=== PATIENT | female | born 1930 | race Two or more races ===

== ENCOUNTER 2017-06-07 15:06 | Emergency (ER) | payer SELFPAY ==
--- NOTE | 2017-06-07 15:24 | ER Document Report ---
ED Extremity Problem, Lower - General Chief Complaint: Leg Swelling Stated Complaint: LEG PAIN Time Seen by Provider: 06/07/17 15:18 Notes: The patient is an 87-year-old female, past medical history Alzheimer's, presents with her daughter after she has had 3 days of increased bilateral leg swelling and abdominal swelling. Patient was started on 20 mg of Lasix by her primary care physician in [place] last month. She recently flew up from [place] and was wearing compression stockings. She has not worn the compression stockings since then. Patient is Swazi-speaking and the daughter is helping with translation. Offered translation services, but the daughter declines. Patient denies chest pain, shortness of breath, cough, fevers, urinary symptoms , abdominal pain, leg pain, rash, back pain, headache or PAZ. - Related Data Allergies/Adverse Reactions: Penicillins Allergy (Verified 06/07/17 15:33) Past Medical History - General Information source: Patient - Social History Smoking Status: Unknown if Ever Smoked Family History: Reviewed & Not Pertinent Review of Systems - Review of Systems Notes: REVIEW OF SYSTEMS: CONSTITUTIONAL: -fevers, -chills EENT: -eye pain, -difficulty swallowing, -nasal congestion CARDIOVASCULAR: -chest pain, -syncope. RESPIRATORY: -cough, -SOB GASTROINTESTINAL: -abdominal pain, -nausea, -vomiting, -diarrhea GENITOURINARY: -dysuria, -hematuria MUSCULOSKELETAL: +B/L leg swelling, -back pain, -neck pain SKIN: -rash or skin lesions. HEMATOLOGIC: -easy bruising or bleeding. LYMPHATIC: -swollen, enlarged glands. NEUROLOGICAL: -altered mental status or loss of consciousness, -headache, - neurologic symptoms PSYCHIATRIC: -anxiety, -depression. ALL OTHER SYSTEMS REVIEWED AND NEGATIVE. Physical Exam - Vital signs Vitals: Temp Resp Pulse Ox 98.0 F 22 H 100 06/07/17 15:15 06/07/17 15:15 06/07/17 15:15 - Notes Notes: PHYSICAL EXAMINATION: GENERAL: Well-appearing, well-nourished and in no acute distress. HEAD: Atraumatic, normocephalic. EYES: Pupils equal round and reactive to light, extraocular movements intact, sclera anicteric, conjunctiva are normal. ENT: nares patent, oropharynx clear without exudates. Moist mucous membranes. NECK: Normal range of motion, supple without lymphadenopathy LUNGS: Breath sounds clear to auscultation bilaterally and equal. No wheezes rales or rhonchi. HEART: Regular rate and rhythm without murmurs ABDOMEN: Soft, nontender, normoactive bowel sounds. No guarding, no rebound. No masses appreciated. EXTREMITIES: 1+ B/L ankle edema, normal range of motion. No cyanosis. NEUROLOGICAL: Cranial nerves grossly intact. Normal speech, normal gait. Normal sensory and motor exams. PSYCH: Normal mood, normal affect. SKIN: Warm, Dry, normal turgor, no rashes or lesions noted. Course - Re-evaluation Re-evalutation: Patient appears well and is in no respiratory distress. Her chest x-ray shows cardiomegaly without evidence of pulmonary edema. She has bilateral peripheral edema and bedside ultrasound does not show any evidence of DVT. Instructed her to increase her Lasix from 20 mg to 40 mg, wear compression stockings, keep her legs elevated and follow-up with her primary care physician in [place] when she returns later this month. The daughter, who is the primary caregiver, understands. - Vital Signs Vital signs: Temp Pulse Resp BP Pulse Ox 98.0 F 82 20 132/74 H 98 06/07/17 18:24 06/07/17 18:24 06/07/17 18:24 06/07/17 18:24 06/07/17 18:24 - Laboratory Result Diagrams: 06/07/17 15:30 06/07/17 15:30 Laboratory results interpreted by me: 06/07/17 06/07/17 06/07/17 15:30 15:30 15:30 Hgb 10.7 L Hct 34.8 L MCV 70 L MCH 21.6 L MCHC 30.8 L RDW 18.6 H BUN 21 H Glucose 131 H AST 56 H Alkaline Phosphatase 135 H Creatine Kinase 293 H NT-Pro-B Natriuret Pep 2100 H - Diagnostic Test Radiology reviewed: Image reviewed, Reports reviewed Radiology results interpreted by me: CXR: Cardiomegaly without pulmonary edema B/L LE DVT US: No DVT or SVT. Discharge - Discharge Clinical Impression: Peripheral edema Condition: Stable Disposition: HOME, SELF-CARE Additional Instructions: Increase her Lasix to 40 mg daily and use compression stockings and keep the legs elevated. She must follow-up with angela primary care physician in [place]. Return to the ER if you have any worsening shortness of breath or any other symptoms. Edema, Peripheral You have swelling in your legs. This is called peripheral edema. It can be caused by "leaky capillaries," inflammation, disease of the leg veins, or excess salt and water in your body. Edema may be a sign of heart, kidney, or liver disease. A medical evaluation can determine if there is a serious underlying cause for your edema. Avoid prolonged standing. If you must sit for a long time, occasionally get up and walk around or elevate your legs. Support stockings can be helpful in limiting swelling. Often diuretic or water pills are used to remove excess salt and water from your body. Call the doctor or return if you develop increased swelling, pain, or redness, shortness of breath, chest pain, or any other significant change. How to prevent Hypokalemia If you continue Lasix, you may have an abnormally decreased level of serum potassium. Hypokalemia may cause weakness, fatigue, or heart rhythm abnormalities. Sometimes there are no symptoms at all. Usually, low serum potassium is due to taking diuretics (water pills). It can also be due to excessive vomiting or diarrhea. If no obvious cause is evident, further evaluation will be necessary. Treatment is usually oral potassium supplements. Take these exactly as prescribed. You may also want to select foods which are naturally high in potassium -- fruits (such as bananas, cantaloupe, grapes, oranges, prunes, tomatoes), fresh vegetables (potatoes, spinach, beans, peas), orange or tomato juice, tomato pasta sauce, milk, fish (halibut, tuna, salmon, jethro) A follow-up blood test is usually performed to assure that the potassium is returning to normal. Call the physician if you suffer severe weakness, muscle twitching or cramping, palpitations (pounding or irregular heartbeat), or any other new or alarming symptoms. Prescriptions: Furosemide [Lasix 40 mg Tablet] 40 mg PO QAM #30 tablet Referrals: KATLYN VARELA MD [ACTIVE STAFF] - Follow up as needed
--- NOTE | 2017-06-07 15:47 | RADIOLOGY REPORT (SQ) ---
EXAM DESCRIPTION: CHEST SINGLE VIEW COMPLETED DATE/TIME: 06/07/2017 3:39 pm REASON FOR STUDY: SOB COMPARISON: None. EXAM PARAMETERS: NUMBER OF VIEWS: One view. TECHNIQUE: Single frontal radiographic view of the chest acquired. RADIATION DOSE: NA LIMITATIONS: Patient body habitus. FINDINGS: LUNGS AND PLEURA: No opacities, masses or pneumothorax. No pleural effusion. MEDIASTINUM AND HILAR STRUCTURES: Prominent HEART AND VASCULAR STRUCTURES: Cardiomegaly. No overt CHF. BONES: No acute findings. HARDWARE: None in the chest. OTHER: No other significant finding. IMPRESSION: Cardiomegaly. No overt CHF. TECHNICAL DOCUMENTATION: JOB ID: [id number] [employer]- All Rights Reserved
[2017-06-07 16:02] LABS: ABSOLUTE BASOPHILS # (AUTO) 0.1 10^3/uL (0.0-0.2); ABSOLUTE LYMPHOCYTES (AUTO) 1.4 10^3/uL (0.5-4.7); ABSOLUTE MONOCYTES (AUTO) 0.8 10^3/uL (0.1-1.4); ABSOLUTE NEUT (AUTO) 4.3 10^3/uL (1.7-8.2); BASOPHILS % (AUTO) 1.1 % (0-2); EOSINOPHILS % (AUTO) 0.4 % (0-6); HEMATOCRIT 34.8 % (36.0-47.0); HEMOGLOBIN 10.7 g/dL (12.0-15.5); LYMPHOCYTES % (AUTO) 21.8 % (13-45); MEAN CORPUSCULAR HEMOGLOBIN 21.6 pg (27.0-33.4); MEAN CORPUSCULAR HGB CONC 30.8 g/dL (32.0-36.0); MEAN CORPUSCULAR VOLUME 70 fl (80-97); MONOCYTES % (AUTO) 11.6 % (3-13); PLATELET COUNT 273 10^3/uL (150-450); RED BLOOD COUNT 4.96 10^6/uL (3.72-5.28); RED CELL DISTRIBUTION WIDTH 18.6 % (11.5-14.0); SEGMENTED NEUTROPHILS % (AUTO) 65.1 % (42-78); TOTAL CELLS COUNTED % (AUTO) 100 %; WHITE BLOOD COUNT 6.6 10^3/uL (4.0-10.5)
[2017-06-07 16:09] LABS: ALANINE AMINOTRANSFERASE 27 U/L (9-52); ALBUMIN 3.9 g/dL (3.5-5.0); ALKALINE PHOSPHATASE 135 U/L (38-126); ANION GAP 9 (5-19); ASPARTATE AMINO TRANSFERASE 56 U/L (14-36); BILIRUBIN,DIRECT 0.4 mg/dL (0.0-0.4); BILIRUBIN,TOTAL 0.5 mg/dL (0.2-1.3); BLOOD UREA NITROGEN 21 mg/dL (7-20); CALCIUM 8.8 mg/dL (8.4-10.2); CARBON DIOXIDE 26 mmol/L (22-30); CHLORIDE 104 mmol/L (98-107); CREATINE KINASE 293 U/L (30-135); GLUCOSE 131 mg/dL (75-110); POTASSIUM 4.4 mmol/L (3.6-5.0); SODIUM 138.5 mmol/L (137-145); TOTAL PROTEIN 6.9 g/dL (6.3-8.2)
[2017-06-07] MEDS ORDERED: KETOROLAC TROMETHAMINE INJ/PF 30 MG/1 ML SDV IV ONE (16:21)
[2017-06-07] MEDS ORDERED: KETOROLAC TROMETHAMINE 60 MG/2 ML SDV IM ONE (16:31)
[2017-06-07] MEDS ORDERED: FUROSEMIDE 40 MG TABLET PO ONE (16:59)
[2017-06-07 18:25] VITALS: BP 132/74
--- NOTE | 2017-06-08 06:45 | EKG REPORT ---
SEVERITY:- ABNORMAL ECG - SINUS RHYTHM ATRIAL PREMATURE COMPLEX LEFT AXIS DEVIATION ANTERIOR INFARCT, AGE INDETERMINATE : Confirmed by: Oscar Mendez MD 08-Jun-2017 06:44:12
--- NOTE | 2017-06-08 07:25 | XCELERA REPORT ---
[address] [address] Lower Extremity Venous Evaluation Name: MAURISIO COOPER Age: 87 yrs Gender: Female : 1930 Patient Status: Emergency Patient Location: ER Study Date: 06/07/2017 04:13 PM Procedure: Color flow and duplex imaging bilaterally of the veins of the lower extremities as well as the Common Femoral veins. Reason For Study: B/L leg swelling, recent flight Ordering Physician: ELMER BUENROSTRO Performed By: Coreen Jackson Right Sided Venous Evaluation Normal vessel filling wall to wall, compression and augmentation as well as Colour flow down to the infrageniculate veins. Left Sided Venous Evaluation Normal vessel filling wall to wall, compression and augmentation as well as Colour flow down to the infrageniculate veins. Interpretation Summary No duplex evidence of DVT or obstruction in the bilateral lower extremities. Considerable subcutaneous edema noted. : ELMER BUENROSTRO > Mikel Reed
== END 2017-06-07 18:25 | disposition home or self-care (01) ==
LOC: ER 15:06
DX: R60.9 Edema, unspecified (principal); G30.9 Alzheimer's disease, unspecified; F02.80 Dementia in other diseases classified elsewhere, unspecified severity, without behavioral disturbance, psychotic disturbance, mood disturbance, and anxiety; Z88.0 Allergy status to penicillin
CPT/HCPCS: 93005; 99284; 96372; 36415; 82550; 85025; 80053; 83880; 93970 ×2; 71045; 93010; J1885

== ENCOUNTER 2017-07-02 16:55 | Emergency (ER) | payer MEDICARE, OTHER ==
--- NOTE | 2017-07-02 18:34 | EKG REPORT ---
SEVERITY:- ABNORMAL ECG - SINUS TACHYCARDIA MULTIFORM VENTRICULAR PREMATURE COMPLEXES LOW VOLTAGE THROUGHOUT = CONSIDER MYXEDEMA HEART OR SEVERE PERICARDIAL EFFUSION. OR SEVERE EMPHYSEMA. CONSIDER INFERIOR INFARCT CONSIDER ANTEROSEPTAL INFARCT BORDERLINE T ABNORMALITIES, LATERAL LEADS : Confirmed by: Oscar Mendez MD 02-Jul-2017 18:33:44
[2017-07-02 19:08] LABS: APPEARANCE,URINE CLEAR; BILIRUBIN,URINE NEGATIVE (NEGATIVE); COLOR,URINE AMBER; GLUCOSE, URINE NEGATIVE (NEGATIVE); KETONES,URINE NEGATIVE (NEGATIVE); LEUKOCYTE ESTERASE,URINE NEGATIVE (NEGATIVE); NITRITE,URINE NEGATIVE (NEGATIVE); PROTEIN,URINE 100 mg/dL (NEGATIVE); URINE SPECIFIC GRAVITY 1.028
[2017-07-02 19:14] LABS: ABSOLUTE MONOCYTES (AUTO) 0.9 10^3/uL (0.1-1.4); ABSOLUTE NEUT (AUTO) 4.6 10^3/uL (1.7-8.2); BASOPHILS % (AUTO) 0.2 % (0-2); EOSINOPHILS % (AUTO) 0.1 % (0-6); HEMATOCRIT 39.3 % (36.0-47.0); LYMPHOCYTES % (AUTO) 15.6 % (13-45); MEAN CORPUSCULAR HEMOGLOBIN 20.6 pg (27.0-33.4); MEAN CORPUSCULAR HGB CONC 30.6 g/dL (32.0-36.0); MEAN CORPUSCULAR VOLUME 67 fl (80-97); MONOCYTES % (AUTO) 13.5 % (3-13); PLATELET COUNT 311 10^3/uL (150-450); RED BLOOD COUNT 5.85 10^6/uL (3.72-5.28); RED CELL DISTRIBUTION WIDTH 20.1 % (11.5-14.0); SEGMENTED NEUTROPHILS % (AUTO) 70.6 % (42-78); TOTAL CELLS COUNTED % (AUTO) 100 %; WHITE BLOOD COUNT 6.5 10^3/uL (4.0-10.5)
[2017-07-02 19:17] LABS: VENOUS BLOOD BASE EXCESS 4.1 mmol/L; VENOUS BLOOD HCO3 30.6 mmol/L (20-32); VENOUS BLOOD PH 7.37 (7.30-7.42)
[2017-07-02 19:22] LABS: INTERNATIONAL RATION (INR) 1.38; PROTHROMBIN TIME 17.8 SEC (11.4-15.4)
[2017-07-02 19:23] LABS: PARTIAL THROMBOPLASTIN TIME 29.5 SEC (23.5-35.8)
--- NOTE | 2017-07-02 19:34 | RADIOLOGY REPORT (SQ) ---
EXAM DESCRIPTION: CHEST SINGLE VIEW COMPLETED DATE/TIME: 07/02/2017 7:24 pm REASON FOR STUDY: ams COMPARISON: 06/07/2017 NUMBER OF VIEWS: One view. TECHNIQUE: Single frontal radiographic view of the chest acquired. LIMITATIONS: None. FINDINGS: LUNGS AND PLEURA: Lung volumes are low resulting and is dependent subsegmental atelectasis . No opacities, masses or pneumothorax. No pleural effusion. MEDIASTINUM AND HILAR STRUCTURES: No masses. Contour normal. HEART AND VASCULAR STRUCTURES: Heart enlarged without failure. Normal vasculature. BONES: No acute findings. HARDWARE: None in the chest. OTHER: No other significant finding. IMPRESSION: NO ACUTE CARDIOPULMONARY PROCESS. NO SIGNIFICANT CHANGE FROM PRIOR STUDY GIVEN [facility] TAMAYO IN TECHNIQUE. TECHNICAL DOCUMENTATION: JOB ID: [id number] [employer]- All Rights Reserved
--- NOTE | 2017-07-02 19:35 | RADIOLOGY REPORT (SQ) ---
EXAM DESCRIPTION: CT HEAD WITHOUT COMPLETED DATE/TIME: 07/02/2017 7:27 pm REASON FOR STUDY: ams COMPARISON: None. TECHNIQUE: Axial images acquired through the brain without intravenous contrast. Images reviewed wi th bone, brain and subdural windows. Images stored on PACS. All CT scanners at this facility use dose modulation, iterative reconstruction, and/or weight based d osing when appropriate to reduce radiation dose to as low as reasonably achievable (ALARA). [facility]: Dose Right [facility]: CareDose [facility]: Dose Right [facility]: Teradose 4D [facility]: Onyvax RADIATION DOSE: mGy. LIMITATIONS: None. FINDINGS: VENTRICLES: Prominent. CEREBRUM: No masses. No hemorrhage. No midline shift. Areas of low density in the white matter mos t likely due to chronic micro-vascular ischemic change. No evidence for acute infarction. CEREBELLUM: No masses. No hemorrhage. No alteration of density. No evidence for acute infarction. EXTRAAXIAL SPACES: Age-related involutional change. No fluid collections. No masses. ORBITS AND GLOBE: Postsurgical change right lens. No intra- or extraconal masses. Normal contour of globe without masses. CALVARIUM: No fracture. PARANASAL SINUSES: No fluid or mucosal thickening. SOFT TISSUES: No mass or hematoma. OTHER: No other significant finding. IMPRESSION: CHRONIC CHANGES OF ATROPHY AND MICROVASCULAR ISCHEMIA. NO ACUTE PROCESS. EVIDENCE OF ACUTE STROKE: NO. TECHNICAL DOCUMENTATION: JOB ID: [id number] Quality ID # [id number]: Final reports with documentation of one or more dose reduction techniques (e.g., Au tomated exposure control, adjustment of the mA and/or kV according to patient size, use of iterative reconstruction technique) 2010 [employer]- All Rights Reserved
[2017-07-02 19:37] LABS: ALANINE AMINOTRANSFERASE 85 U/L (9-52); ALBUMIN 3.5 g/dL (3.5-5.0); ALKALINE PHOSPHATASE 121 U/L (38-126); ANION GAP 9 (5-19); ASPARTATE AMINO TRANSFERASE 94 U/L (14-36); BILIRUBIN,TOTAL 1.5 mg/dL (0.2-1.3); BLOOD UREA NITROGEN 27 mg/dL (7-20); CALCIUM 9.4 mg/dL (8.4-10.2); CARBON DIOXIDE 30 mmol/L (22-30); CHLORIDE 106 mmol/L (98-107); GLUCOSE 126 mg/dL (75-110); POTASSIUM 3.5 mmol/L (3.6-5.0); TOTAL PROTEIN 6.8 g/dL (6.3-8.2)
[2017-07-02] MEDS ORDERED: FUROSEMIDE INJ/PF 40 MG/4 ML SDV IV ONE (21:04)
[2017-07-02 23:10] LABS: TROPONIN I 0.257 ng/mL
[2017-07-02] MEDS ORDERED: ASPIRIN 300 MG SUPP, RECTAL PR ONE (23:56)
--- NOTE | 2017-07-03 01:14 | ER Document Report ---
ED General - General TRAVEL OUTSIDE OF THE [place] IN LAST 30 DAYS: No - HPI Patient complains to provider of: Altered mental status edema <JAMES CRUZ - Last Filed: 07/03/17 01:08> <RAKAN LAM - Last Filed: 07/03/17 02:45> - General Chief Complaint: Edema Stated Complaint: ALTERED MENTAL STATUS Time Seen by Provider: 07/02/17 18:38 - HPI Notes: Patient coming in for altered mental status and edema. Patient has recently came to [place] from [place]. Patient has history of edema according to the family members at bedside before she left [place] was started on Lasix her on any medication. I hear [place] and she did visit our ER approximately 3 weeks ago for lower extremity edema had bilateral Dopplers performed showing no signs of DVT patient's Lasix was increased from 20-40 patient was discharged home. At the time no states patient able ambulate and otherwise participate in physical examination. Upon my exam today patient is speaking in nonsensical terms. According to family at bedside patient has declined the last 48 hours. States that one. Patient was unable to move her left upper extremity. States patient normally ambulates and during [place] was dancing however the last 48 hours patient has not been able to walk or move. States the client was very rapid no fevers no chills no nausea no vomiting no diarrhea. Patient also has decreased p.o. intake. (JAMES CRUZ) - Related Data Allergies/Adverse Reactions: Penicillins Allergy (Verified 06/07/17 15:33) Past Medical History - Social History Smoking Status: Unknown if Ever Smoked Frequency of alcohol use: None Drug Abuse: None Family History: Reviewed & Not Pertinent Patient has suicidal ideation: No Patient has homicidal ideation: No - Past Medical History Cardiac Medical History: Reports: Hx Congestive Heart Failure Renal/ Medical History: Denies: Hx Peritoneal Dialysis <JAMES CRUZ - Last Filed: 07/03/17 01:08> Review of Systems - Review of Systems -: Yes ROS unobtainable due to patient's medical condition - Dementia <JAMES CRUZ - Last Filed: 07/03/17 01:08> Physical Exam - Vital signs Interpretation: Normal - General General appearance: Alert - HEENT Head: Normocephalic, Atraumatic Eyes: Normal Pupils: PERRL - Respiratory Respiratory status: No respiratory distress Chest status: Nontender Breath sounds: Normal Chest palpation: Normal - Cardiovascular Rhythm: Regular Heart sounds: Normal auscultation Murmur: No - Abdominal Inspection: Normal, Other - Anasarca Distension: No distension Bowel sounds: Normal Tenderness: Nontender Organomegaly: No organomegaly - Back Back: Normal, Nontender - Extremities General upper extremity: Normal inspection, Nontender, Edema, Normal color, Normal ROM General lower extremity: Normal inspection, Nontender, Edema. No: Normal temperature - Cool to touch cap refill in the distal extremities normal - Neurological Neuro grossly intact: Yes Cognition: Confused [place] Coma Scale Eye Opening: Spontaneous [place] Coma Scale Verbal: Incomprehensible [place] Coma Scale Motor: Localizes to Pain [place] Coma Scale Total: 11 - Psychological Associated symptoms: Confused - Skin Skin Temperature: Warm Skin Moisture: Dry Skin Color: Normal <JAMES CRUZ - Last Filed: 07/03/17 01:08> - Vital signs Vitals: Resp BP 18 154/103 H 07/02/17 17:12 07/02/17 17:12 Course - Laboratory Result Diagrams: 07/02/17 18:20 07/02/17 18:20 <JAMES CRUZ - Last Filed: 07/03/17 01:08> - Laboratory Result Diagrams: 07/02/17 18:20 07/02/17 18:20 <RAKAN LAM - Last Filed: 07/03/17 02:45> - Re-evaluation Re-evalutation: 07/03/17 01:11 Patient's laboratory studies not reveal any signs of infection the renal failure. Patient chest x-ray and CT of the head also are negative. Patient's EKG did not show any acute changes patient's troponin did return elevated at 0.2 with elevated proBNP. More likely underlying CHF exacerbation possibly right-sided as the patient does have significant anasarca pitting edema in her upper and lower extremities and in her abdomen. No wounds were found either on examination for infection. Patient was given Lasix and aspirin. Because of elevated troponin and lack of cardiology coverage here at this facility I did discuss the case with Dr. Gonzalez of [facility] who said the patient in transfer however was informed that at the time he did not have a bed available. Family agreed in transfer I did have a long discussion with the family members at bedside who are not the power of personal injury attorney we did try to contact the power of personal injury attorney in [place] however this was not successful family at bedside does agree that with the patient's cognitive decline in current situation that they would agree to making the patient a DNR no CPR no intubation if the patient was to go into cardiac arrest with story failure when he does interventions. Charge nurse Roz was present for conversation. Patient otherwise will remain on the monitor No clear etiology for altered mental status was found on workup possible etiology could be intracranial stroke missed by CT also possibly brewing infection currently does not show any current laboratory changes or just progression of dementia 07/03/17 01:19 (JAMES CRUZ) 07/03/17 02:44 Transport is arrived to take the patient [facility]. I did reevaluate the patient. Her vital signs are stable. She is sleeping but is arousable. She arouses she does mumble some incoherently. In reviewing Dr. Cruz's chart this is consistent with what his physical exam finding was as well. Patient is stable for transfer. Dictation of this chart was performed using voice recognition software; therefore, there may be some unintended grammatical errors. (RAKAN LAM) - Vital Signs Vital signs: Temp Pulse Resp BP Pulse Ox 97.0 F 84 12 121/77 100 07/02/17 18:13 07/02/17 18:13 07/03/17 01:00 07/03/17 00:01 07/03/17 01:00 - Laboratory Laboratory results interpreted by me: 07/02/17 07/02/17 07/02/17 17:37 18:20 18:20 RBC 5.85 H MCV 67 L MCH 20.6 L MCHC 30.6 L RDW 20.1 H Monocytes % 13.5 H PT 17.8 H Potassium BUN Glucose POC Glucose Lactic Acid Total Bilirubin Direct Bilirubin AST ALT NT-Pro-B Natriuret Pep TSH Urine Protein 100 H Urine Urobilinogen 4.0 H Urine Ascorbic Acid 20 H 07/02/17 07/02/17 07/02/17 18:20 18:20 19:07 RBC MCV MCH MCHC RDW Monocytes % PT Potassium 3.5 L BUN 27 H Glucose 126 H POC Glucose 118 H Lactic Acid 2.5 H Total Bilirubin 1.5 H Direct Bilirubin 1.0 H AST 94 H ALT 85 H NT-Pro-B Natriuret Pep TSH Urine Protein Urine Urobilinogen Urine Ascorbic Acid 07/02/17 07/02/17 22:15 22:15 RBC MCV MCH MCHC RDW Monocytes % PT Potassium BUN Glucose POC Glucose Lactic Acid Total Bilirubin Direct Bilirubin AST ALT NT-Pro-B Natriuret Pep 4840 H TSH 5.40 H Urine Protein Urine Urobilinogen Urine Ascorbic Acid Discharge <JAMES CRUZ - Last Filed: 07/03/17 01:08> <RAKAN LAM - Last Filed: 07/03/17 02:45> - Discharge Clinical Impression: Elevated troponin Altered mental status Qualifiers: Altered mental status type: unspecified Qualified Code(s): R41.82 - Altered mental status, unspecified Condition: Good Disposition: [facility]
[2017-07-03 02:36] LABS: URINE AMPHETAMINES SCREEN NEGATIVE; URINE BARBITURATES SCREEN NEGATIVE; URINE BENZODIAZEPINES SCREEN NEGATIVE; URINE COCAINE SCREEN NEGATIVE; URINE MARIJUANA (THC) SCREEN NEGATIVE; URINE METHADONE SCREEN NEGATIVE; URINE PHENCYCLIDINE SCREEN NEGATIVE
[2017-07-03 02:57] VITALS: BP 103/72
== END 2017-07-03 02:55 | disposition short-term general hospital (02) ==
LOC: ER 16:55
DX: R41.82 Altered mental status, unspecified (principal); R79.1 Abnormal coagulation profile; R60.9 Edema, unspecified; I50.9 Heart failure, unspecified; Z88.0 Allergy status to penicillin
CPT/HCPCS: 93005; 99285; 96374; 36415; 87086; 82962; 82550; 84443; 85025; 85610; 85730; 80053; 81001; 84484; 80307; 82803; 83605; 83880; 71045; 70450; 93010; A9270; J1940; J3490